=== PATIENT | female | born 1990 | race American Indian/Alaskan Native ===

== ENCOUNTER 2016-04-04 11:03 | Emergency (ER) | payer MEDICAID, OTHER ==
--- NOTE | 2016-04-04 13:41 | Emergency Department Report ---
HPI - General Chief Complaint: Upper Respiratory Infection Time Seen by Provider: 04/04/16 13:38 - HPI HPI: Patient is a 24-year-old female who presents with cough 2 days. Patient states she has been having dry nonproductive cough for the past 2 days. Patient states she's been taking Tylenol and TheraFlu and states it's been helping somewhat not helping with the cough. Patient denies fevers/chills/shortness of breath/chest pain/throat pain/ rhinorrhea/dysuria/abdominal pain/diarrhea or any other problems ED Past Medical Hx - Past Medical History Hx Hypertension: No Hx Congestive Heart Failure: No Hx Diabetes: No Hx Deep Vein Thrombosis: No Hx Renal Disease: No Hx Sickle Cell Disease: No Hx Asthma: No Hx COPD: No - Social History Smoking Status: Current Some Day Smoker - Medications Home Medications: Home Medications Medication Instructions Recorded Confirmed Last Taken Type Ciprofloxacin HCl [Cipro] 500 mg PO BID #20 tablet 11/02/12 07/26/15 Unknown Rx Fluconazole [Diflucan] 150 mg PO QDAY #1 tablet 11/02/12 07/26/15 Unknown Rx Phenazopyridine [Pyridium] 200 mg PO TID #6 tablet 11/02/12 07/26/15 Unknown Rx Phenazopyridine [Pyridium] 100 mg PO BID #10 tablet 09/30/13 07/26/15 Unknown Rx Phenazopyridine [Pyridium] 200 mg PO TID #6 tablet 09/30/13 07/26/15 Unknown Rx Nitrofurantoin [place]/M-Cryst 100 mg PO BID #10 capsule 04/21/14 07/26/15 Unknown Rx [Macrobid CAP] Promethazine [Phenergan] 25 mg PO Q6H PRN #10 tablet 04/21/14 07/26/15 Unknown Rx Ferrous Sulfate [Feosol 325 MG tab] 325 mg PO BID #60 tablet 07/26/15 Unknown Rx HYDROcodone/APAP 5-325 [[place] 1 each PO Q6HR PRN #30 tablet 07/26/15 Unknown Rx 5/325] Ibuprofen [Motrin] 800 mg PO Q8HR PRN #30 tablet 07/26/15 Unknown Rx Vit W-Ca,Fe,FA(<1 mg) 1 each PO DAILY #30 tablet 07/26/15 Unknown Rx [ Vitamins] Benzonatate [Tessalon Perles] 100 mg PO Q8HR #20 capsule 04/04/16 Unknown Rx ED Review of Systems ROS: Stated complaint: COLD SYMPTOMS Other details as noted in HPI Constitutional: denies: chills, fever Eyes: denies: eye pain, eye discharge, vision change ENT: denies: ear pain, throat pain Respiratory: denies: cough, shortness of breath, wheezing Cardiovascular: denies: chest pain, palpitations Endocrine: no symptoms reported Gastrointestinal: denies: abdominal pain, nausea, vomiting, diarrhea Genitourinary: denies: urgency, dysuria, discharge Musculoskeletal: denies: back pain, joint swelling, arthralgia Skin: denies: rash, lesions Neurological: denies: headache, weakness, numbness, paresthesias, confusion, abnormal gait, vertigo Psychiatric: denies: anxiety, depression, suicidal thoughts Hematological/Lymphatic: denies: easy bleeding, easy bruising Physical Exam - Physical Exam Vital Signs: Vital Signs 04/04/16 11:37 Temperature 98.5 F Pulse Rate 81 Respiratory 18 Rate Blood Pressure 115/83 O2 Sat by Pulse 100 Oximetry Physical Exam: GENERAL: Alert and oriented x3, no apparent distress, Normal Gait, atraumatic. HEAD: Head is normocephalic and a-traumatic. EYES: Extra ocular muscles are intact. Pupils are equal, round, and reactive to light and accommodation. EARS: symetrical, atraumatic, non tender. gross auditory nml bilaterally. NOSE: Nose symetrical, Nontender,Nares appeared normal. MOUTH:Mouth is well hydrated and without lesions. Tonsils nonerythematous or swollen, Uvula midline, Tongue not elevated. Mucous membranes are moist. Posterior pharynx clear, no exudate or lesions. Patent airways. NECK: Supple. Non edematous, No carotid bruits. No lymphadenopathy or thyromegaly. LUNGS: Symetrical with respiration, No wheezing, no rales or crackles, CTAB. HEART: S1, S2 present, regular rate and rhythm without murmur, no rubs, no gallops. ABDOMEN: No organomegaly was noted,Positive bowel sounds, soft, and non- distended. Nontender to palpation on all Quadrants, NO CVA tenderness. EXTREMITIES/MUSCULOSKELETAL: No cyanosis, clubbing, rash, lesions or edema. Full ROM bilaterally. UE/LE Pulses 2+ bilaterally. NEUROLOGIC: No focal Deficit, Cranial nerves II through XII are grossly intact. No loss of sensation PSYCHIATRIC: Mood is congruent with affect, denies suicidal or homicidal ideations. SKIN: Warm and dry, No lesions, No ulceration or induration present. ED Course Vital Signs 04/04/16 11:37 Temperature 98.5 F Pulse Rate 81 Respiratory 18 Rate Blood Pressure 115/83 O2 Sat by Pulse 100 Oximetry ED Medical Decision Making - Medical Decision Making 22-year-old female presents with bronchitis. ED course: Patient receives 200 mg of Robitussin. She reports feeling better and states the Robitussin helped. Vital signs are stable. Patient is alert and oriented 3 patient is in no acute or respiratory distress. Patient shows no signs of illness. Discussed the patient to follow up with primary care physician. Discussed with the patient if symptoms worsen or new symptoms arise return to ED. Otherwise follow-up with primary care physician Critical care attestation.: If time is entered above; I have spent that time in minutes in the direct care of this critically ill patient, excluding procedure time. ED Disposition Clinical Impression: Bronchitis Disposition: DISCHARGED TO HOME OR SELFCARE Is pt being admited?: No Does the pt Need Aspirin: No Condition: Stable Instructions: Acute Bronchitis (ED), Chronic Bronchitis (ED) Additional Instructions: Continue to take medications such as TheraFlu as needed. Follow-up with her primary care doctor in 3-5 days Prescriptions: Benzonatate [Tessalon Perles] 100 mg PO Q8HR #20 capsule Referrals: PRIMARY MD LASHON [Primary Care Provider] - 3-5 Days EDGAR BANKS MD [Referring] - 3-5 Days JAMARI BATRES MD [Referring] - 3-5 Days [facility] [Outside] - 3-5 Days ALISA Chou [facility] [Outside] - 3-5 Days Forms: Work/School Release Form(ED) Time of Disposition: 14:54
[2016-04-04] MEDS ORDERED: ZOFRAN ODT PO ONE (14:18)
[2016-04-04 16:22] VITALS: BP 121/87
== END 2016-04-04 16:21 | disposition home or self-care (01) ==
LOC: ED 11:03
DX: J40 Bronchitis, not specified as acute or chronic (principal); F17.200 Nicotine dependence, unspecified, uncomplicated
CPT/HCPCS: 99282; Q0162

== ENCOUNTER 2017-03-26 01:38 | Inpatient (IN) | payer MEDICAID, OTHER ==
[2017-03-26] MEDS ORDERED: PITOCin/NS 20 UNIT/1000ML DRIP 20,000 MILLIUNITS/1,000 ML BAG IV ONE (02:33)
[2017-03-26] MEDS ORDERED: PEPCID IV ONE ×2 (02:33→03:00)
[2017-03-26] MEDS ORDERED: ANCEF/STERILE WATER 2 GM/20 ML 2 GM/20 ML SYRINGE IV ONE (02:34)
[2017-03-26] MEDS ORDERED: BICITRA ONE (02:34)
[2017-03-26] MEDS ORDERED: LACTATED RINGERS 1,000 ML ONE ×2 (02:43→03:11)
[2017-03-26] MEDS ORDERED: BICITRA PO ONE (03:00)
[2017-03-26] MEDS ORDERED: ANCEF/STERILE WATER 2 GM/20 ML IV NR (03:00)
[2017-03-26] MEDS ORDERED: BRETHINE IVP PRN (03:30)
[2017-03-26] MEDS ORDERED: BRETHINE SUB-Q PRN (03:30)
[2017-03-26] MEDS ORDERED: MINERAL OIL PO PRN (03:30)
[2017-03-26] MEDS ORDERED: XYLOCAINE 2% INFILTRATI ONE (03:30)
[2017-03-26] MEDS ORDERED: ePHEDrine SULFATE IV PRN (03:30)
[2017-03-26] MEDS ORDERED: SUBLIMAZE ONE (03:32)
[2017-03-26 03:40] LABS: Hematocrit 37.1 % (30.3-42.9); Hemoglobin 12.7 gm/dl (10.1-14.3); Mean Corpuscular HGB Conc 34 % (30-34); Mean Corpuscular Hemoglobin 30 pg (28-32); Mean Corpuscular Volume 89 fl (79-97); Platelet Count 312 K/mm3 (140-440); Red Blood Count 4.17 M/mm3 (3.65-5.03); Red Cell Distribution Width 14.5 % (13.2-15.2)
--- NOTE | 2017-03-26 03:54 | History and Physical Report ---
History of Present Illness Date of examination: 03/26/17 Date of admission: 03/26/17 03:04 Chief complaint: I'm having contractions History of present illness: Patient is a 26 year old who presents tonight with labor and contractions with EDC 03/21/17. Patient was initially planning to but decided just last week that she wanted to have a repeat instead. She presents tonight with contractions. We will proceed with . Her course was complicated by late entry into care at 20 weeks Past History Past Medical History: no pertinent history Past Surgical History: no surgical history Family/Genetic History: none - Obstetrical History Expected Date of Delivery: 03/21/17 Actual Gestation: 40 Week(s) 5 Day(s) : 4 Medications and Allergies Allergies Allergy/AdvReac Type Severity Reaction Status Date / Time No Known Allergies Allergy Verified 07/26/15 00:37 Home Medications Medication Instructions Recorded Confirmed Last Taken Type Ciprofloxacin HCl [Cipro] 500 mg PO BID #20 tablet 11/02/12 07/26/15 Unknown Rx Fluconazole [Diflucan] 150 mg PO QDAY #1 tablet 11/02/12 07/26/15 Unknown Rx Phenazopyridine [Pyridium] 200 mg PO TID #6 tablet 11/02/12 07/26/15 Unknown Rx Phenazopyridine [Pyridium] 100 mg PO BID #10 tablet 09/30/13 07/26/15 Unknown Rx Phenazopyridine [Pyridium] 200 mg PO TID #6 tablet 09/30/13 07/26/15 Unknown Rx Nitrofurantoin [place]/M-Cryst 100 mg PO BID #10 capsule 04/21/14 07/26/15 Unknown Rx [Macrobid CAP] Promethazine [Phenergan] 25 mg PO Q6H PRN #10 tablet 04/21/14 07/26/15 Unknown Rx Ferrous Sulfate [Feosol 325 MG tab] 325 mg PO BID #60 tablet 07/26/15 Unknown Rx HYDROcodone/APAP 5-325 [[place] 1 each PO Q6HR PRN #30 tablet 07/26/15 Unknown Rx 5/325] Ibuprofen [Motrin] 800 mg PO Q8HR PRN #30 tablet 07/26/15 Unknown Rx Vit Calc,Iron,Folic 1 each PO DAILY #30 tablet 07/26/15 Unknown Rx [ Vitamins] Benzonatate [Tessalon Perles] 100 mg PO Q8HR #20 capsule 04/04/16 Unknown Rx Active Meds: Active Medications Ephedrine Sulfate (Ephedrine Sulfate) 10 mg IV Q2M PRN PRN Reason: Hypotension Lactated Ringer's (Lactated Ringers) 1,000 mls @ 125 mls/hr IV DIRECT THU Oxytocin/Sodium Chloride (Pitocin/Ns 20 Unit/1000ml Drip) 20 units in 1,000 mls @ 125 mls/hr IV DIRECT THU Mineral Oil (Mineral Oil) 30 ml PO QHS PRN PRN Reason: Constipation Terbutaline Sulfate (Brethine) 0.25 mg SUB-Q ONCE PRN PRN Reason: Hyperstimulation/Hypertonicity Terbutaline Sulfate (Brethine) 0.25 mg IVP ONCE PRN PRN Reason: Hyperstimulation/Hypertonicity Review of Systems All systems: negative - Vital Signs Vital signs: Vital Signs Pulse BP 71 113/65 03/26/17 02:02 03/26/17 02:02 Temp Pulse Resp BP Pulse Ox 71 113/65 03/26/17 02:02 03/26/17 02:02 - Physical Exam Breasts: Cardiovascular: Regular rate, Normal S1, Normal S2 Lungs: Positive: Clear to auscultation Abdomen: Positive: normal appearance, soft, normal bowel sounds. Negative: distention, tenderness Genitourinary (Female): Positive: normal external genitalia, normal perenium Vulva: both: normal Vagina: Positive: normal moisture. Negative: discharge Cervix: Negative: lesion, discharge Uterus: Positive: normal size, normal contour Adnexa: both: normal Anus/Rectum: Positive: normal perianal skin, heme negative. Negative: rectal mass, hemorrhoids Extremities: Deep Tendon Reflex Grade: Normal +2 - Obstetrical FHR: auscultation normal Cervical Dilatation: 2 Uterine Contraction Frequency (min): 5-7 Uterine Contraction Pattern: Regular Uterine Contraction Intensity: Moderate Results Result Diagrams: 03/26/17 02:45 Abnormal lab results 03/26/17 Range/Units 02:45 WBC 14.1 H (4.5-11.0) K/mm3 All other labs normal. Assessment and Plan IUP at 40.5 in early labor with plans for repeat .
[2017-03-26] MEDS ORDERED: ANCEF/STERILE WATER 2 GM/20 ML IV ONE (03:57)
[2017-03-26] MEDS ORDERED: LACTATED RINGERS 1,000 ML IV SCH (04:00)
[2017-03-26] MEDS ORDERED: WATER FOR IRRIG STERILE IR ONE (04:00)
[2017-03-26] MEDS ORDERED: NACL 0.9% IR ONE (04:00)
[2017-03-26] MEDS ORDERED: PITOCin/NS 20 UNIT/1000ML DRIP 20 UNITS/1,000 ML BAG IV SCH ×2 (04:00→06:40)
[2017-03-26] MEDS ORDERED: NARCAN 0.4 MG/1 ML IV PRN ×2 (05:21→06:40)
[2017-03-26] MEDS ORDERED: DILAUDID IV PRN (05:21)
[2017-03-26] MEDS ORDERED: ZOFRAN IV PRN ×2 (05:21→06:40)
--- NOTE | 2017-03-26 05:21 | Anesthesia Consultation ---
Anesthesia Consult and Med Hx Date of service: 03/26/17 - Airway Anesthetic Teeth Evaluation: Good ROM Head & Neck: Adequate Mental/Hyoid Distance: Adequate Mallampati Class: Class II Intubation Access Assessment: Probably Good - Pulmonary Exam CTA: Yes - Cardiac Exam Cardiac Exam: RRR - Pre-Operative Health Status ASA Pre-Surgery Classification: ASA2, Emergency Proposed Anesthetic Plan: Spinal - Pulmonary Hx Asthma: No COPD: No Hx Pneumonia: No - Cardiovascular System Hx Hypertension: No - Central Nervous System Hx Psychiatric Problems: No - Endocrine Hx Renal Disease: No Hx End Stage Renal Disease: No Hx Hyperthyroidism: No - Hematic Hx Anemia: No Hx Sickle Cell Disease: No - Other Systems Hx Alcohol Use: No
--- NOTE | 2017-03-26 05:21 | Anesthesia Day of Surgery ---
Anesthesia Day of Surgery - Day of Surgery Patient Examined: Yes Patient H&P Reviewed: Yes Patient is NPO: Yes
[2017-03-26] MEDS ORDERED: TORADOL IV PRN (05:22)
[2017-03-26] MEDS ORDERED: SODIUM CHLORIDE FLUSH SYRINGE 10 ML IV NR ×2 (06:00→06:40)
[2017-03-26] MEDS ORDERED: LANSINOH TP PRN (06:40)
[2017-03-26] MEDS ORDERED: MYLICON PO PRN (06:40)
[2017-03-26] MEDS ORDERED: D5LR 1,000 ML IV SCH (06:40)
[2017-03-26] MEDS ORDERED: MORPHINE IV PRN (06:40)
[2017-03-26] MEDS ORDERED: TUCKS PAD TP PRN (06:40)
[2017-03-26] MEDS: TORADOL IV PRN ×2 (06:52→14:26)
--- NOTE | 2017-03-26 12:19 | Operative Report ---
Operative Report Operative Report: The operative report for patient Misty Lawton Date of service 03/26/2007 Preoperative diagnosis: Intrauterine at 40-5/7 weeks 2. Previous 3. Spontaneous labor Postoperative diagnosis: Same Procedure: Repeat low transverse section Surgeon: Dr. May Alvarez EBL: 400 mL Urine output: 200 mL IV fluids: 1500 mL Findings: Viable male in the vertex occiput posterior position. Weight 8 lbs. 0oz. 3642 g Apgars 8 and 9. Otherwise normal pelvic anatomy Specimens: None Complications: None Procedure: The patient was admitted to the OR with IV running and in place. She was properly identified as herself. She was given spinal anesthesia in the OR without difficulty. She was placed in the dorsal supine position with a leftward tilt. A Brooks catheter was inserted. She was then prepped and draped in the normal sterile fashion. An Allis test was used to confirm adequate anesthesia. Once confirmed, the incision was made with the scalpel and carried to the underlying fascia using the scalpel and the Bovie. The fascia was incised in the midline and incision was extended bilaterally using the curved Dasilva scissors. The fascia was then dissected from the underlying rectus muscles in a series of sharp and blunt dissection using the Dasilva scissors. Muscles were in the in the midline sharply using Metzenbaum scissors and the peritoneum was entered into bluntly using the surgeon's fingers. A bladder blade was then placed into the incision to protect the bladder. Following this the bladder flap was created. Hysterotomy incision was then made in the scalpel. Upon uterine entry, the amniotic sac was ruptured for clear fluid. The infant was then delivered in the occiput posterior position. His mouth and nose were suctioned on the field. The cord was clamped and cut and he was handed to the waiting NICU personnel. The uterus was then exteriorized and cleared of all clots and debris. The hysterotomy incision was then closed in a running locked fashion using 0 Vicryl. The abdomen was then copiously irrigated with warm normal saline. Following this the uterus was replaced into the abdominal cavity. At this point the muscles were reapproximated in the midline using individual sutures of 0 Vicryl. Following this the fascia was closed in a running fashion using 0 Vicryl. Tissue was then copiously irrigated. Skin was closed with kayla. The sponge lap needle and instrument counts were correct 2. The patient tolerated the procedure well. She was taken to recovery in stable condition.
[2017-03-26 18:30] LABS: Hematocrit 33.8 % (30.3-42.9); Hemoglobin 11.4 gm/dl (10.1-14.3)
[2017-03-26] MEDS: MOTRIN PO PRN (21:05)
[2017-03-26] MEDS: PERCOCET 5/325 PO PRN (21:05)
[2017-03-27] MEDS: PERCOCET 5/325 PO PRN ×3 (06:57→22:37)
[2017-03-27] MEDS: MOTRIN PO PRN ×3 (06:58→22:37)
--- NOTE | 2017-03-27 09:24 | Progress Note ---
Subjective Date of service: 03/27/17 Interval history: Patient has no complain. Ambulating without any difficulty. Objective - Constitutional Vitals: Vital Signs - 12hr 03/27/17 00:30 Temperature 98.4 F Pulse Rate 84 Respiratory 16 Rate Blood Pressure 121/69 [Right] - Labs CBC & Chem 7: 03/26/17 17:31
[2017-03-27] MEDS: PRENATAL VITAMIN PO SCH (12:56)
--- NOTE | 2017-03-27 20:14 | Progress Note ---
Assessment and Plan POD 1 s/p rltcs. Doing well. Patient is . Patient considering discharge on tomorrow Subjective - Subjective Date of service: 03/27/17 Interval history: Patient is a 26 year old who presents tonight with labor and contractions with EDC 03/21/17. Patient was initially planning to but decided just last week that she wanted to have a repeat instead. She presents tonight with contractions. We will proceed with . Her course was complicated by late entry into care at 20 weeks Patient reports: appetite normal, voiding normally, pain well controlled, ambulating normally : doing well Objective - Vital Signs Latest vital signs: Vital Signs Temp Pulse Resp BP BP Pulse Ox 03/27/17 16:35 98.0 F 75 20 102/66 97 03/27/17 07:21 98.4 F 76 20 96/56 98 03/27/17 00:30 98.4 F 84 16 121/69 Intake and Output 03/27/17 03/27/17 03/27/17 06:59 14:59 22:59 Intake Total 480 120 Output Total 1000 Balance -1000 480 120 Intake: Oral 480 120 Output: Urine 1000 Void 1000 Other: Total, Intake Amount 120 120 Total, Output Amount 500 # Voids Void 1 1 - Exam Breasts: Present: deferred Cardiovascular: Present: Regular rate, Normal S1, Normal S2 Lungs: Present: Clear to auscultation, Normal air movement Abdomen: Present: normal appearance, soft, normal bowel sounds Uterus: Present: normal, firm Extremities: Present: normal Deep Tendon Reflex Grade: Normal +2 Incision: Present: normal, dry, intact
[2017-03-27] MEDS ORDERED: MILK OF MAGNESIA PO ONE (21:40)
[2017-03-28] MEDS: PRENATAL VITAMIN PO SCH (08:39)
[2017-03-28] MEDS: MOTRIN PO PRN ×2 (08:39→15:00)
[2017-03-28] MEDS: PERCOCET 5/325 PO PRN ×3 (08:40→20:02)
[2017-03-28] MEDS: TRIPLE ANTIBIOTIC TP SCH ×2 (15:01→19:57)
--- NOTE | 2017-03-28 18:10 | Discharge Summary ---
Providers - Providers Date of Admission: 03/26/17 03:04 Date of discharge: 03/28/17 Attending physician: QUIANA VAZQUEZ Primary care physician: QUIANA VAZQUEZ Hospitalization Reason for admission: active labor Delivery: Procedure: repeat low transverse Episiotomy: none Laceration: none Incision: normal, dry, intact Other procedures: none complications: none Discharge diagnosis: IUP at term delivered [place] baby: male Condition at discharge: Good Disposition: DC-01 TO HOME OR SELFCARE Plan - Discharge Medications Prescriptions: Docusate Sodium [Colace] 100 mg PO BID PRN #60 capsule PRN Reason: Constipation Ibuprofen [Motrin] 800 mg PO Q8HR PRN #40 tablet PRN Reason: Pain Oxycodone HCl/Acetaminophen [Percocet 7.5/325 mg] 1 each PO Q6HR PRN #50 tablet PRN Reason: Pain - Provider Discharge Summary Activity: routine, no sex for 6 weeks, no heavy lifting 4 weeks, no strenuous exercise Diet: routine Instructions: routine Additional instructions: [] Smoking cessation referral if applicable(refer to patient education folder for contact #) [] Refer to [facility] Booklet Call your doctor immediately for: * Fever > 100.5 * Heavy vaginal bleeding ( >1 pad per hour) * Severe persistent headache * Shortness of breath * Reddened, hot, painful area to leg or breast * Drainage or odor from incision. * Keep incision clean and dry at all times and follow doctor's instructions regarding bathing/showering - Follow up plan Follow up: QUIANA VAZQUEZ MD [Primary Care Provider] - 7 Days
[2017-03-29] MEDS: PERCOCET 5/325 PO PRN ×2 (04:56→10:41)
[2017-03-29] MEDS: PRENATAL VITAMIN PO SCH (09:15)
[2017-03-29] MEDS: MOTRIN PO PRN (10:42)
[2017-03-29] MEDS: TRIPLE ANTIBIOTIC TP SCH (15:18)
[2017-03-29 18:51] VITALS: BP 110/76
== END 2017-03-29 17:52 | disposition home or self-care (01) | DRG 766 ==
LOC: TRG 01:38 → APU 03:04 → TRG 03:04 → OB 06:28
PROVIDERS: ADMIT Obstetrics & Gynecology; ATTEND Obstetrics & Gynecology
PROC: 10D00Z1 Extraction of Products of Conception, Low, Open Approach (ICD-10-PCS; principal; 2017-03-26)
DX: O34.211 Maternal care for low transverse scar from previous cesarean delivery (principal); Z3A.40 40 weeks gestation of pregnancy; Z37.0 Single live birth
CPT/HCPCS: 36415; 85014; 85018; 85027; 86592; 86850; 86900; 86901; 88307; 99211; A6250; G0463; J0690; J1885; J2590; J3010; J7120; J7121

== ENCOUNTER 2018-06-04 13:06 | Emergency (ER) | payer MEDICAID ==
--- NOTE | 2018-06-04 13:26 | Emergency Department Report ---
Blank Doc - Documentation Documentation: This is a 27-year-old female that presents with vaginal bleeding. Stated is p regnant and found out last week. This initial assessment/diagnostic orders/clinical plan/treatment(s) is/are subject to change based on patient's health status, clinical progression and re-assessment by fellow clinical providers in the ED. Further treatment and workup at subsequent clinical providers discretion. Patient/guardians urged not to elope from the ED as their condition may be serious if not clinically assessed and managed. Initial orders include: 1- Patient sent to [facility] for further evaluation and treatment 2- UA 3- labs 4- US OB
[2018-06-04 13:30] VITALS: BP 107/56
[2018-06-04 14:13] LABS: Basophils % (Auto) 0.5 % (0.0-1.8); Eosinophils % (Auto) 0.1 % (0.0-4.3); Hematocrit 37.4 % (30.3-42.9); Hemoglobin 12.9 gm/dl (10.1-14.3); Lymphocytes # (Auto) 1.2 K/mm3 (1.2-5.4); Lymphocytes % (Auto) 15.5 % (13.4-35.0); Mean Corpuscular HGB Conc 34 % (30-34); Mean Corpuscular Volume 89 fl (79-97); Monocytes # (Auto) 0.4 K/mm3 (0.0-0.8); Monocytes % (Auto) 5.5 % (0.0-7.3); Platelet Count 387 K/mm3 (140-440); Red Blood Count 4.22 M/mm3 (3.65-5.03); Red Cell Distribution Width 13.9 % (13.2-15.2)
[2018-06-04 14:21] LABS: Bacteria,Urine 1+ /HPF (Negative); Bilirubin,Urine NEG (Negative); Blood,Urine LG (Negative); Color,Urine Yellow (Yellow); Mucus,Urine 2+ /HPF
[2018-06-04 14:22] LABS: RBC,Urine > 182.0 /HPF (0.0-6.0)
--- NOTE | 2018-06-04 17:09 | Ultrasound Report ---
PROCEDURE: US OB TRANSVAGINAL TECHNIQUE: Ultrasound obstetrical transvaginal HISTORY: vaginal bleeding COMPARISONS: FINDINGS: There is a gestational sac within the uterus pole is identified with crown-rump length of 0.56 cm corresponding to estimated gestational age of 6 weeks 2 days. No cardiac activity identified at this time. Right ovary is 4.7 x 2.3 x 3.1 cm 2 right ovarian cysts are identified measuring 1.5 and 1.1 cm Left ovary is 3.0 x 1.3 x 2.0 cm. No abnormal adnexal mass identified IMPRESSION: Intrauterine gestational sac and pole identified. No cardiac activity identified. Suspect demise. Continued follow-up recommended.. This document is electronically signed by Celestino Xavier MD., June 04 2018 05:07:19 PM ET
--- NOTE | 2018-06-04 17:10 | Ultrasound Report ---
PROCEDURE: US OB <= 14 WEEKS FETUS TECHNIQUE: Ultrasound obstetrical transabdominal HISTORY: vaginal bleeding COMPARISONS: FINDINGS: There is a gestational sac within the uterus pole is identified with crown-rump length of 0.56 cm corresponding to estimated gestational age of 6 weeks 2 days. No cardiac activity identified at this time. Right ovary is 4.7 x 2.3 x 3.1 cm 2 right ovarian cysts are identified measuring 1.5 and 1.1 cm Left ovary is 3.0 x 1.3 x 2.0 cm. No abnormal adnexal mass identified IMPRESSION: Intrauterine gestational sac and pole identified. No cardiac activity identified. Suspect demise. Continued follow-up recommended.. . This document is electronically signed by Celestino Xavier MD., June 04 2018 05:08:10 PM ET
--- NOTE | 2018-06-04 17:19 | Emergency Department Report ---
ED HPI - General Chief complaint: Vaginal Bleeding Stated complaint: ABD PAIN Time Seen by Provider: 06/04/18 13:25 Source: patient Mode of arrival: Ambulatory Limitations: No Limitations - History of Present Illness Initial comments: Pt is a 27 yo female who presents to the ED with c/o vaginal bleeding that began today. She states initially there was spotting and then it became heavier. The patient states she has suprapubic cramping. The patient states two weeks ago she was having flank pain and went to her PCP and was told she had a threatened . THe patient denies any emesis, fever, or dysuria. She states her LNMP was April 26. She has not yet seen [facility]. The patient states her previous [facility] was Dr. Chio Alvarez. /P:2/A:2 - Related Data Previous Rx's Medication Instructions Recorded Last Taken Type Ciprofloxacin HCl [Cipro] 500 mg PO BID #20 tablet 11/02/12 Unknown Rx Fluconazole [Diflucan] 150 mg PO QDAY #1 tablet 11/02/12 Unknown Rx Phenazopyridine [Pyridium] 200 mg PO TID #6 tablet 11/02/12 Unknown Rx Phenazopyridine [Pyridium] 100 mg PO BID #10 tablet 09/30/13 Unknown Rx Phenazopyridine [Pyridium] 200 mg PO TID #6 tablet 09/30/13 Unknown Rx Nitrofurantoin [place]/M-Cryst 100 mg PO BID #10 capsule 04/21/14 Unknown Rx [Macrobid CAP] Promethazine [Phenergan] 25 mg PO Q6H PRN #10 tablet 04/21/14 Unknown Rx Ferrous Sulfate [Feosol 325 MG tab] 325 mg PO BID #60 tablet 07/26/15 Unknown Rx HYDROcodone/APAP 5-325 [[place] 1 each PO Q6HR PRN #30 tablet 07/26/15 Unknown Rx 5/325] Ibuprofen [Motrin] 800 mg PO Q8HR PRN #30 tablet 07/26/15 Unknown Rx Vit Calc,Iron,Folic 1 each PO DAILY #30 tablet 07/26/15 Unknown Rx [ Vitamins] Benzonatate [Tessalon Perles] 100 mg PO Q8HR #20 capsule 04/04/16 Unknown Rx Docusate Sodium [Colace] 100 mg PO BID PRN #60 capsule 03/26/17 Unknown Rx Ibuprofen [Motrin] 800 mg PO Q8HR PRN #40 tablet 03/26/17 Unknown Rx Oxycodone HCl/Acetaminophen 1 each PO Q6HR PRN #50 tablet 03/26/17 Unknown Rx [Percocet 7.5/325 mg] Allergies Allergy/AdvReac Type Severity Reaction Status Date / Time No Known Allergies Allergy Verified 06/04/18 13:19 ED Review of Systems ROS: Stated complaint: ABD PAIN Other details as noted in HPI Comment: All other systems reviewed and negative ED Past Medical Hx - Past Medical History Hx Hypertension: No Hx Congestive Heart Failure: No Hx Diabetes: No Hx Deep Vein Thrombosis: No Hx Renal Disease: No Hx Sickle Cell Disease: No Hx Kidney Stones: Yes Hx Asthma: No Hx COPD: No Hx HIV: No - Surgical History Past Surgical History?: Yes Additional Surgical History: kidney stent - Social History Smoking Status: Never Smoker Substance Use Type: Marijuana - Medications Home Medications: Home Medications Medication Instructions Recorded Confirmed Last Taken Type Ciprofloxacin HCl [Cipro] 500 mg PO BID #20 tablet 11/02/12 03/27/17 Unknown Rx Fluconazole [Diflucan] 150 mg PO QDAY #1 tablet 11/02/12 03/27/17 Unknown Rx Phenazopyridine [Pyridium] 200 mg PO TID #6 tablet 11/02/12 03/27/17 Unknown Rx Phenazopyridine [Pyridium] 100 mg PO BID #10 tablet 09/30/13 03/27/17 Unknown Rx Phenazopyridine [Pyridium] 200 mg PO TID #6 tablet 09/30/13 03/27/17 Unknown Rx Nitrofurantoin [place]/M-Cryst 100 mg PO BID #10 capsule 04/21/14 03/27/17 Unknown Rx [Macrobid CAP] Promethazine [Phenergan] 25 mg PO Q6H PRN #10 tablet 04/21/14 03/27/17 Unknown Rx Ferrous Sulfate [Feosol 325 MG tab] 325 mg PO BID #60 tablet 07/26/15 03/27/17 Unknown Rx HYDROcodone/APAP 5-325 [[place] 1 each PO Q6HR PRN #30 tablet 07/26/15 03/27/17 Unknown Rx 5/325] Ibuprofen [Motrin] 800 mg PO Q8HR PRN #30 tablet 07/26/15 03/27/17 Unknown Rx Vit Calc,Iron,Folic 1 each PO DAILY #30 tablet 07/26/15 03/27/17 Unknown Rx [ Vitamins] Benzonatate [Tessalon Perles] 100 mg PO Q8HR #20 capsule 04/04/16 03/27/17 Unknown Rx Docusate Sodium [Colace] 100 mg PO BID PRN #60 capsule 03/26/17 Unknown Rx Ibuprofen [Motrin] 800 mg PO Q8HR PRN #40 tablet 03/26/17 Unknown Rx Oxycodone HCl/Acetaminophen 1 each PO Q6HR PRN #50 tablet 03/26/17 Unknown Rx [Percocet 7.5/325 mg] ED Physical Exam - General Limitations: No Limitations General appearance: alert, in no apparent distress - Head Head exam: Present: atraumatic, normocephalic - Eye Eye exam: Present: normal appearance - ENT ENT exam: Present: mucous membranes moist - Respiratory Respiratory exam: Present: normal lung sounds bilaterally. Absent: respiratory distress, wheezes, rales, rhonchi, stridor, chest wall tenderness, accessory mu scle use, decreased breath sounds, prolonged expiratory - Cardiovascular Cardiovascular Exam: Present: regular rate, normal rhythm, systolic murmur (2/6 systolic murmur) - GI/Abdominal GI/Abdominal exam: Present: soft, normal bowel sounds. Absent: distended, tenderness, guarding, rebound, rigid - Back Exam Back exam: Absent: CVA tenderness (R), CVA tenderness (L) - Neurological Exam Neurological exam: Present: alert, oriented X3 - Psychiatric Psychiatric exam: Present: normal affect, normal mood - Skin Skin exam: Present: warm, dry, intact ED Course Vital Signs 06/04/18 13:28 Temperature 98.1 F Pulse Rate 71 Respiratory 18 Rate Blood Pressure 107/56 O2 Sat by Pulse 100 Oximetry ED Medical Decision Making - Lab Data Result diagrams: 06/04/18 13:36 Lab Results 06/04/18 06/04/18 06/04/18 Range/Units 13:36 13:36 13:50 WBC 8.0 (4.5-11.0) K/mm3 RBC 4.22 (3.65-5.03) M/mm3 Hgb 12.9 (10.1-14.3) gm/dl Hct 37.4 (30.3-42.9) % MCV 89 (79-97) fl MCH 31 (28-32) pg MCHC 34 (30-34) % RDW 13.9 (13.2-15.2) % Plt Count 387 (140-440) K/mm3 Lymph % (Auto) 15.5 (13.4-35.0) % [place] % (Auto) 5.5 (0.0-7.3) % Eos % (Auto) 0.1 (0.0-4.3) % Baso % (Auto) 0.5 (0.0-1.8) % Lymph # 1.2 (1.2-5.4) K/mm3 [place] # 0.4 (0.0-0.8) K/mm3 Eos # 0.0 (0.0-0.4) K/mm3 Baso # 0.0 (0.0-0.1) K/mm3 Seg Neutrophils % 78.4 H (40.0-70.0) % Seg Neutrophils # 6.3 (1.8-7.7) K/mm3 HCG, Quant 8856 H (0-4) mIU/mL Urine Color Yellow (Yellow) Urine Turbidity Slightly-cloudy (Clear) Urine pH 6.0 (5.0-7.0) Ur Specific [place] 1.036 H (1.003-1.030) Urine Protein 100 mg/dl (Negative) mg/dL Urine Glucose (UA) Neg (Negative) mg/dL Urine Ketones Neg (Negative) mg/dL Urine Blood Lg (Negative) Urine Nitrite Neg (Negative) Urine Bilirubin Neg (Negative) Urine Urobilinogen 2.0 (<2.0) mg/dL Ur Leukocyte Esterase Neg (Negative) Urine WBC (Auto) 5.0 (0.0-6.0) /HPF Urine RBC (Auto) > 182.0 (0.0-6.0) /HPF U Epithel Cells (Auto) 10.0 (0-13.0) /HPF Urine Bacteria (Auto) 1+ (Negative) /HPF Urine Mucus 2+ /HPF - Radiology Data Radiology results: report reviewed US OB: intrauterine gestational sac and pole identified. Measuring 6 weeks 2 days. No cardiac activity. Suspect demise. - Medical Decision Making Pt is a 27 yo female who presents to the ED with c/o vaginal bleeding that began today. She states initially there was spotting and then it became heavier. The patient states she has suprapubic cramping. The patient states two weeks ago she was having flank pain and went to her PCP and was told she had a threatened . THe patient denies any emesis, fever, or dysuria. She states her LNMP was April 26. She has not yet seen [facility]. The patient states her previous [facility] was Dr. Chio Alvarez. /P:2/A:2 labs WNL. VSS. hcg quant is 8856. no signs of UTI. US OB: intrauterine gestational sac and pole identified. Measuring 6 weeks 2 days. No cardiac activity. Suspect demise. Pt will need to have a repeat hcg quant in 48 hours either by PCP or [facility]. Pt needs to follow up with [facility] in the next 2-3 days. Return to the emergency room for any new or worsening symptoms. - Differential Diagnosis , threatened , complete Critical care attestation.: If time is entered above; I have spent that time in minutes in the direct care of this critically ill patient, excluding procedure time. ED Disposition Clinical Impression: Threatened Ovarian cyst Qualifiers: Laterality: right Qualified Code(s): N83.201 - Unspecified ovarian cyst, right side Disposition: - TO HOME OR SELFCARE Is pt being admited?: No Does the pt Need Aspirin: No Condition: Stable Instructions: Threatened Miscarriage (ED), Ovarian Cyst (ED) Additional Instructions: Today (06/04/18) your hcg quant is 8856. You will need to have a repeat hcg quant in 48 hours either by PCP or [facility]. Please follow up with [facility] in the next 2- 3 days. Return to the emergency room for any new or worsening symptoms. Please continue to take your vitamins. Continue drinking plenty of fluids. Referrals: ALPESH HENRY MD [Primary Care Provider] - 2-3 Days QUIANA ALVAREZ MD [Staff Physician] - 2-3 Days Time of Disposition: 17:23 Print Language: CENTRAL AFRICAN
== END 2018-06-04 17:33 | disposition home or self-care (01) ==
LOC: ED 13:06
DX: O20.0 Threatened abortion (principal); O34.81 Maternal care for other abnormalities of pelvic organs, first trimester; N83.201 Unspecified ovarian cyst, right side; O99.321 Drug use complicating pregnancy, first trimester; F12.10 Cannabis abuse, uncomplicated; Z87.442 Personal history of urinary calculi; Z3A.01 Less than 8 weeks gestation of pregnancy
CPT/HCPCS: 36415; 76801; 76817; 81001; 84702; 85025

== ENCOUNTER 2020-07-06 18:28 | Emergency (ER) | payer MEDICAID | END 2020-07-07 02:41 | LOC: ED 18:28 | DX: N23 Unspecified renal colic (principal); Z53.21 Procedure and treatment not carried out due to patient leaving prior to being seen by health care provider ==